=== PATIENT | female | born 1935 | race Caucasian/White ===

== ENCOUNTER 2025-06-05 08:18 | Emergency (ER) | payer MEDICARE ==
[2025-06-05 08:50] LABS: #Basophils 0.1 thou/uL (0.0-0.2); #Eosinophils 0.0 thou/uL (0.0-0.7); #Lymphocytes 0.5 thou/uL (1.20-3.40); #Monocytes 0.6 thou/uL (0.11-0.59); #Neutrophils 9.1 thou/uL (1.40-6.50); %Basophils 1.2 % (0.0-1.0); %Eosinophils 0.3 % (0.0-10.0); %Lymphocytes 4.9 % (21.0-51.0); %Monocytes 5.6 % (0.0-10.0); %Neutrophils 88.0 % (42.0-75.0); Hematocrit 44.5 % (36.0-47.0); Hemoglobin 13.5 g/dL (12.0-16.0); Mean Corpuscular Hemoglobin 27.5 pg (27.0-31.0); Mean Corpuscular Volume 90.4 fl (78.0-98.0); Platelet Count 243 10x3/uL (130-400); Red Blood Cell (RBC) Count 4.93 mill/uL (4.20-5.40); White Blood Cell (WBC) Count 10.4 10x3/uL (4.8-10.8)
[2025-06-05 09:03] LABS: INR-International Normal Ratio 1.4; Prothrombin Time 16.8 sec (12.0-14.7)
[2025-06-05 09:04] LABS: PTT 34.6 sec (22.9-36.1)
[2025-06-05 09:13] LABS: Troponin I 0.107 ng/mL (< 0.028)
[2025-06-05 09:37] LABS: ALT (SGPT) 14 U/L (Less than 34); AST (SGOT) 37 U/L (11-34); Albumin 3.9 g/dL (3.1-4.5); Alkaline Phosphatase 61 U/L (40-110); Anion Gap 19 mmol/L (10-20); BUN (Urea Nitrogen) 21 mg/dL (9.8-20.1); Bilirubin, Total 0.5 mg/dL (0.3-1.2); Calc. Creatinine Clearance 0 mL/min (70-130); Calcium 9.5 mg/dL (7.8-10.44); Carbon Dioxide 23 mmol/L (23-31); Chloride 101 mmol/L (98-107); Globulin 2.9 g/dL (2.4-3.5); Glucose 106 mg/dL (83-110); Potassium 3.8 mmol/L (3.5-5.1); Sodium 139 mmol/L (136-145)
[2025-06-05] MEDS ORDERED: Iopamidol 370 76% 100 ML VIAL ONE (12:06)
== END 2025-06-05 12:06 | disposition home or self-care (01) ==
LOC: BURERS 08:18
DX: S22.31XA Fracture of one rib, right side, initial encounter for closed fracture (principal); S00.12XA Contusion of left eyelid and periocular area, initial encounter; J90 Pleural effusion, not elsewhere classified; R79.89 Other specified abnormal findings of blood chemistry; I48.91 Unspecified atrial fibrillation; I25.2 Old myocardial infarction; I10 Essential (primary) hypertension; E03.9 Hypothyroidism, unspecified; E78.00 Pure hypercholesterolemia, unspecified; Z79.01 Long term (current) use of anticoagulants; Z79.82 Long term (current) use of aspirin; Z79.890 Hormone replacement therapy; Z79.899 Other long term (current) drug therapy; W01.198A Fall on same level from slipping, tripping and stumbling with subsequent striking against other object, initial encounter
CPT/HCPCS: 70450; 70486; 71260; 74177; 80053; 83880; 84484; 85025; 85610; 85730; 93005; 94760; 94799; Q9967